=== PATIENT | female | born 2000 | race African-American/Black ===

== ENCOUNTER 2022-12-03 09:50 | Inpatient (IN) | payer OTHER, BC ==
[2022-12-03 11:36] VITALS: BMI 35.4
[2022-12-03] MEDS ORDERED: OXYTOCIN 20 UNITS in 0.9% NS 40 UNIT/2,000 ML INFUS.BAG IV ONE (13:33)
[2022-12-03] MEDS ORDERED: ceFAZolin SODIUM 1 GM VIAL ONE (13:35)
[2022-12-03] MEDS ORDERED: morphine SULFATE (PF) 1 MG/2 ML SYRINGE ONE (13:35)
[2022-12-03] MEDS ORDERED: PHENYLEPHRINE HCL 10 MG/1 ML SINGLE DOSE VIAL ONE (13:36)
[2022-12-03] MEDS ORDERED: ONDANSETRON 4 MG/2 ML VIAL ONE (14:24)
[2022-12-03] MEDS ORDERED: OXYTOCIN 10 UNITS/ML VIAL ONE (14:24)
[2022-12-03] MEDS ORDERED: DEXAMETHASONE SOD PHOSPHATE 4 MG/1 ML VIAL ONE (14:24)
[2022-12-03] MEDS ORDERED: ONDANSETRON 4 MG/2 ML VIAL IVPUSH PRN (15:26)
[2022-12-03] MEDS ORDERED: ACETAMINOPHEN 1000 MG/100 ML BAG IVPB PRN (15:27)
[2022-12-03] MEDS ORDERED: SENNOSIDES/DOCUSATE COMBO (SENNA PLUS) TABLET (UD) PO PRN (15:30)
[2022-12-03] MEDS ORDERED: METHYLERGONOVINE MALEATE 0.2 MG/1 ML AMP IM PRN (15:30)
[2022-12-03] MEDS: OXYTOCIN 20 UNITS in 0.9% NS 20 UNIT/1,000 ML INFUS.BAG IV SCH ×2 (15:53→21:08)
[2022-12-03] MEDS ORDERED: NIFEdipine E.R. 30 MG TABLET PO ONE (15:55)
[2022-12-03] MEDS: NIFEdipine E.R. 30 MG TABLET PO SCH (16:02)
[2022-12-03] MEDS ORDERED: CITRIC ACID/SODIUM CITRATE 30 ML UNIT-DOSE CUP PO ONE (16:27)
[2022-12-03] MEDS ORDERED: ELECTROLYTE-148 SOLN 1,000 ML IV SCH (16:30)
[2022-12-03] MEDS ORDERED: DEXTROSE 5%-LACTATED RINGERS 1,000 ML IV SCH (16:30)
[2022-12-03] MEDS: FERROUS SO4 325 MG TABLET (FP) PO SCH (17:51)
[2022-12-03] MEDS: SIMETHICONE 80 MG TAB.CHEW (FP) PO PRN (21:13)
[2022-12-03] MEDS: LABETALOL HCL 200 MG TABLET (FP) PO SCH (21:13)
[2022-12-04] MEDS ORDERED: oxyCODONE HCL 5 MG TABLET PO PRN ×2 (03:30)
[2022-12-04] MEDS: IBUPROFEN 800 MG/8 ML IJ IVPB PRN ×2 (06:09→11:16)
[2022-12-04 07:12] LABS: BASO % 0.1 % (0-2.0); LYMPH % 14.1 % (8-40); MCH 29.1 pg (25.7-33.7); MEAN CELL VOLUME 83.1 fl (80-96); MEAN PLT VOLUME 8.9 fl (7.5-11.1); MONO % 5.8 % (3.8-10.2); PLATELET COUNT 197 10^3/uL (134-434); RBC 4.46 M/mm3 (3.60-5.2); RDW 14.3 % (11.6-15.6); WHITE BLOOD COUNT 16.4 K/mm3 (4.0-10.0)
[2022-12-04] MEDS: PRENATAL VITAMINS W/ FOLIC ACID TABLET (FP) PO SCH (09:36)
[2022-12-04] MEDS: NIFEdipine E.R. 30 MG TABLET PO SCH (09:36)
[2022-12-04] MEDS: LABETALOL HCL 200 MG TABLET (FP) PO SCH ×2 (09:36→21:26)
[2022-12-04] MEDS: FERROUS SO4 325 MG TABLET (FP) PO SCH ×2 (09:36→18:06)
[2022-12-04] MEDS ORDERED: BISACODYL 10 MG SUPP.RECT RC PRN (15:30)
[2022-12-04] MEDS: IBUPROFEN 600 MG TABLET (FP) PO PRN (18:06)
[2022-12-04] MEDS: SIMETHICONE 80 MG TAB.CHEW (FP) PO PRN (18:07)
[2022-12-04] MEDS: ACETAMINOPHEN 325 MG TABLET (FP) PO PRN (20:33)
[2022-12-05] MEDS: IBUPROFEN 600 MG TABLET (FP) PO PRN ×5 (02:38→23:38)
[2022-12-05] MEDS: SIMETHICONE 80 MG TAB.CHEW (FP) PO PRN ×3 (07:30→18:26)
[2022-12-05] MEDS: FERROUS SO4 325 MG TABLET (FP) PO SCH ×2 (09:49→18:26)
[2022-12-05] MEDS: ACETAMINOPHEN 325 MG TABLET (FP) PO PRN ×3 (09:49→21:26)
[2022-12-05] MEDS: PRENATAL VITAMINS W/ FOLIC ACID TABLET (FP) PO SCH (09:49)
[2022-12-05] MEDS: NIFEdipine E.R. 30 MG TABLET PO SCH (09:51)
[2022-12-05] MEDS: LABETALOL HCL 200 MG TABLET (FP) PO SCH ×2 (09:52→21:23)
[2022-12-06] MEDS: IBUPROFEN 600 MG TABLET (FP) PO PRN ×2 (05:28→11:34)
[2022-12-06] MEDS: SIMETHICONE 80 MG TAB.CHEW (FP) PO PRN ×2 (05:28→08:45)
[2022-12-06] MEDS: ACETAMINOPHEN 325 MG TABLET (FP) PO PRN (08:44)
[2022-12-06] MEDS: FERROUS SO4 325 MG TABLET (FP) PO SCH (08:44)
[2022-12-06] MEDS: PRENATAL VITAMINS W/ FOLIC ACID TABLET (FP) PO SCH (09:01)
[2022-12-06] MEDS: NIFEdipine E.R. 30 MG TABLET PO SCH (09:01)
[2022-12-06] MEDS: LABETALOL HCL 200 MG TABLET (FP) PO SCH (09:01)
[2022-12-06 13:39] VITALS: BP 139/93; PULSE 82; RESP 17; TEMP 97.5
== END 2022-12-06 13:40 | disposition home or self-care (01) | DRG 787 ==
LOC: JLDR 09:50 → J3W 17:00
PROVIDERS: ADMIT Obstetrics & Gynecology; ATTEND Obstetrics & Gynecology
PROC: 10D00Z1 Extraction of Products of Conception, Low, Open Approach (ICD-10-PCS; principal; 2022-12-03)
DX: O36.63X0 Maternal care for excessive fetal growth, third trimester, not applicable or unspecified (principal); O10.02 Pre-existing essential hypertension complicating childbirth; O24.420 Gestational diabetes mellitus in childbirth, diet controlled; O69.89X0 Labor and delivery complicated by other cord complications, not applicable or unspecified; Z3A.39 39 weeks gestation of pregnancy; Z37.0 Single live birth
CPT/HCPCS: 36415; 85025; 88307-TC